=== PATIENT | female | born 1980 | race Caucasian/White ===

== ENCOUNTER 2020-12-07 17:19 | Emergency (ER) | payer OTHER, BC, SELFPAY ==
--- NOTE | 2020-12-07 17:28 | ED.HA ---
HPI - Headache General Chief Complaint: Headache Stated Complaint: SHAY Time Seen by Provider: 12/07/20 17:28 Source: patient Mode of arrival: ambulatory Limitations: no limitations History of Present Illness HPI Narrative: Patient is a 40-year-old female who presents complaining of headache. Patient reports slip and fall hitting head on metal tractor trailer early Tuesday a.m. Patient has bruising to central forehead, small abrasion. She denies LOC. She denies face pain or neck pain. Patient does not take blood thinners. Patient reports taking Tylenol this afternoon with mild relief. MD elicited complaint: headache Related Data Home Medications Medication Instructions Recorded Confirmed sertraline 100 mg DAILY 12/07/20 12/07/20 Allergies Allergy/AdvReac Type Severity Reaction Status Date / Time latex Allergy Unknown Verified 05/18/16 09:41 Review of Systems Review of Systems: Narrative: CONSTITUTIONAL: Denies fever, chills, or sweats. EYES: Denies visual changes, redness, or discharge. ENT: Denies rhinorrhea, congestion, sore throat, or otalgia. CARDIOVASCULAR: Denies chest pain, palpitations, or edema. RESPIRATORY: Denies cough or dyspnea. GASTROINTESTINAL: Denies abdominal pain, nausea, vomiting, or diarrhea. GENITOURINARY: Denies dysuria or hematuria. SKIN: Bruise and abrasion to central forehead MUSCULOSKELETAL: Denies back pain, joint pain, or myalgia. NEUROLOGIC: Reports headache, denies numbness, dizziness, or weakness. PSYCHIATRIC: Denies anxiety or depression. [facility] Past Medical History Medical History (Updated 12/07/20 @ 17:45 by BERT Yang) Abnormal uterine bleeding Anxiety Asthma Benign tumor of uterus Chronic tonsillitis Depression Kidney stone depression hemorrhage Seizure possibly related to energy drink, no seizure medication or seizure since UTI (urinary tract infection) Surgical History Surgical History (Updated 12/07/20 @ 17:45 by BERT Yang) History of hysterectomy History of placement of ear tubes Hx of tonsillectomy No significant past surgical history Family History Family History (Updated 12/07/20 @ 17:46 by BERT Yang) Other Arthritis Autoimmune disorder Cancer Diabetes mellitus Hypertension No significant family history Social History Social History (Updated 12/07/20 @ 17:30 by BERT Yang) Smoking status: Never smoker Second hand tobacco smoke exposure: No Alcohol intake: never Substance use: never Living arrangements: with family Gender identity (if verbalized by the patient): Female Comments At the time of signature, I have reviewed and agree with nursing past medical, surgical, social, and family history unless otherwise noted. Please see nursing chart for further information. There is no relevant family history pertinent to the presenting complaint. Exam Narrative: Exam Narrative: GENERAL: Well-appearing, well-nourished, and in no acute distress. HEAD: Normocephalic, small abrasion with ecchymosis noted to central forehead EYES: EOMI. PERRLA, no redness or drainage. Conjunctiva are normal. ENT: Mucous membranes pink and moist. Nares clear. No rhinorrhea. TMs normal bilaterally. NECK: AROM. Supple. No lymphadenopathy. No tenderness with palpation CHEST: No respiratory distress. HEART: Regular rate and rhythm. EXTREMITIES: Normal range of motion. SKIN: Warm, dry, no rash. NEURO: No focal deficits. Alert and oriented x3. Gait steady. PSYCH: Normal affect. No signs of depression or anxiety. MDM - Headache MDM Narrative Medical decision making narrative: Patient's fall happened approximately 2 days ago, patient does not meet NEXUS II criteria. Toradol given for headache relief. Patient reports much decreased headache at this time. Patient is aware that if she continues to have headaches she should follow up with her pcp, or if headache is severe or involv
[2020-12-07] MEDS: ACETAMINOPHEN 500 MG TABLET 1000 MG PO (17:33)
[2020-12-07] MEDS: KETOROLAC (*BKC) 60 MG/2 ML VIAL IM (17:34)
[2020-12-07 17:41] VITALS: BP 159/100; PULSE 72; RESP 18; TEMP 36.9; O2SAT 98
== END 2020-12-07 18:10 | disposition home or self-care (01) ==
PROVIDERS: Emergency Provider Nurse Practitioner
DX: F07.81 Postconcussional syndrome (principal); R51.9 Headache, unspecified; J45.909 Unspecified asthma, uncomplicated; F41.9 Anxiety disorder, unspecified; F32.9 Major depressive disorder, single episode, unspecified
CPT/HCPCS: 96372; 99213; A9270; G0463; J1885

== ENCOUNTER 2022-06-14 16:56 | Emergency (ER) | payer OTHER, BC, SELFPAY ==
--- NOTE | ~2022-06-14 | XR_ITS ---
EXAM: XR wrist LT min 3V DATE: 06/14/2022 17:42 HISTORY: trauma today fell on outstreatched wrist . COMPARISON: None available. FINDINGS: Normal mineralization. No fracture or dislocation. No lytic or blastic lesion. Joint space s are maintained. No erosion or periosteal change. Soft tissues within normal limits. IMPRESSION: No acute osseous finding in the left wrist. Reviewed, dictated and finalized at location K.
--- NOTE | 2022-06-14 17:05 | ED.UPPEXIN ---
HPI - Extremity Injury (Upper) General Chief Complaint: Extremity Injury, Upper Stated Complaint: Bilateral Wrist Pain due to Fall Time Seen by Provider: 06/14/22 17:26 Source: patient and RN notes reviewed Mode of arrival: ambulatory Limitations: no limitations History of Present Illness HPI narrative: 41-year-old female presents with concern for bilateral wrist pain. Reports she tripped today falling and catching herself with both wrists. She reports bruising on both palmar aspects of the wrist. She reports worse pain on the left side. Reports the left side has a sharp stabbing pain when she moves or twists her wrist. Reports she used ice on and off all day today. MD complaint: injury to: left, right and wrist Related Data Home Medications Medication Instructions Recorded Confirmed sertraline 100 mg tablet 100 mg DAILY 12/07/20 12/07/20 lisinopril 20 mg tablet 20 mg DAILY 06/14/22 06/14/22 Allergies Allergy/AdvReac Type Severity Reaction Status Date / Time latex Allergy Unknown Blister Verified 06/14/22 17:21 Review of Systems Review of Systems: CONSTITUTIONAL: Denies malaise, chills, sweats, or fever. SKIN: Denies rash or itching, open skin, laceration, abrasion, redness, warmth, swelling. MUSCULOSKELETAL: Reports bilateral wrist pain and bruising NEUROLOGIC: Denies numbness, weakness All systems reviewed & are unremarkable except as noted in HPI and below PMFSH Past Medical History Medical History (Updated 06/14/22 @ 17:52 by Yanet Garcia NP) Abnormal uterine bleeding Anxiety Asthma Benign tumor of uterus Chronic tonsillitis Depression Kidney stone depression hemorrhage Seizure possibly related to energy drink, no seizure medication or seizure since UTI (urinary tract infection) Surgical History Surgical History (Updated 12/07/20 @ 17:45 by Kristi Winchester, MOLD DUMPER) History of hysterectomy History of placement of ear tubes Hx of tonsillectomy No significant past surgical history Family History Family History (Updated 12/07/20 @ 17:46 by Kristi Winchester, M[employer] DUMPER) Other Arthritis Autoimmune disorder Cancer Diabetes mellitus Hypertension No significant family history Social History Social History (Updated 12/07/20 @ 17:30 by Kristi Winchester, M[employer]ER) Smoking status: Never smoker Second hand tobacco smoke exposure: No Alcohol intake: never Substance use: never Gender identity (if verbalized by the patient): Female Comments At time of signature, agree with nursing past medical, surgical, social and family history. There is no relevant family history pertinent to the presenting complaint Exam Narrative: GENERAL: Well-appearing, well-nourished, and in no acute distress. HEAD: Normocephalic, atraumatic. EYES: PERRLA, conjunctivae clear NECK: Supple. CHEST: Speaks in full sentences. No respiratory distress. HEART: Regular rate and rhythm. Normal and equal peripheral pulses. EXTREMITIES: Bilateral wrists, hands, digits have normal sensation, right wrist has normal range of motion, left wrist has limited range of motion. No edema. Mid wrist ecchymosis noted bilaterally, worse on the left to the dorsal aspect of the wrist. 5/5 strength with right flexion and extension, 4 out of 5 strength with digits 2 and 3 on the left, otherwise normal on the left. Normal sensation with sensitivity to light touch and pain. Left-sided radial wrist tenderness. No open wounds, no skin tenting, no devitalized tissue or atrophy, no trophic changes, no obvious deformity, alignment normal, nearby joints and structures intact. Distal pulses palpable and equal bilaterally, skin warm, dry, pink. Capillary refill less than 3 seconds. SKIN: Warm, dry, no rash. NEURO: Alert and oriented x3. PSYCH: Normal mood and affect Course Course Emergency Course: Patient is aware of diagnosis, understands and agrees to treatment plan. Anticipatory guidance given. Patient agrees
[2022-06-14 17:12] VITALS: BP 124/63; PULSE 87; RESP 16; TEMP 36.7; O2SAT 100
== END 2022-06-14 18:00 | disposition home or self-care (01) ==
PROVIDERS: Emergency Provider Nurse Practitioner; PCP Physician Assistant
DX: S63.502A Unspecified sprain of left wrist, initial encounter (principal); W01.0XXA Fall on same level from slipping, tripping and stumbling without subsequent striking against object, initial encounter; J45.909 Unspecified asthma, uncomplicated; F41.9 Anxiety disorder, unspecified; F32.A Depression, unspecified
CPT/HCPCS: 73110; 99213; G0463